=== PATIENT | male | born 1990 | race African-American/Black ===

== ENCOUNTER 2017-12-20 10:57 | Emergency (ER) | payer SELFPAY ==
[~2017-12-20] VITALS: Ht 175.3 cm; Wt 81.8 kg
[2017-12-20] MEDS ORDERED: MORPHINE SULFATE 4 MG/ML SYRINGE IVP ONE (11:30)
[2017-12-20] MEDS ORDERED: LORazepam 2 MG/ML VIAL IVP ONE (11:30)
[2017-12-20] MEDS ORDERED: BUPIVACAINE/EPI/PF 0.5% 30 ML VIAL ID ONE (11:30)
[2017-12-20] MEDS ORDERED: ONDANSETRON HCL 4 MG/2 ML VIAL IVP ONE (11:30)
[2017-12-20 11:40] LABS: HEMATOCRIT 45.3 % (41-53); HEMOGLOBIN 16.4 g/dL (13.5-17.5); MEAN CORPUSCULAR HEMOGLOBIN 33.2 pg (26.0-34.0); MEAN CORPUSCULAR HGB CONC 36.2 G/dL (31.0-37.0); MEAN CORPUSCULAR VOLUME 92 fL (80-100); PLATELET COUNT (AUTO) 229 K/uL (150-450); RED BLOOD CELL COUNT(AUTO) 4.93 MIL/uL (4.50-5.90); RED CELL DISTRIBUTION WIDTH 12.4 % (11.5-14.5)
[2017-12-20 11:50] LABS: ANION GAP 9 mmol/L (8-16); CALCIUM, TOTAL 9.1 mg/dL (8.8-10.5); CARBON DIOXIDE 24 mmol/L (22-29); CHLORIDE 99 mmol/L (98-107); CREATININE 1.21 mg/dL (0.60-1.30); GLOMERULAR FILTR. RATE CALC > 60 mL/min (>60); GLUCOSE,RANDOM 119 mg/dL (70-110); POTASSIUM 4.3 mmol/L (3.5-5.1); SODIUM SERUM 132 mmol/L (136-145); UREA NITROGEN, BLOOD 9 mg/dL (7-18)
[2017-12-20 11:56] LABS: ALANINE AMINOTRANSFERASE 19 U/L (12-78); ALBUMIN 3.2 g/dL (3.4-5.0); ALKALINE PHOSPHATASE 74 U/L (46-116); ASPARTATE AMINOTRANSFERASE 16 U/L (15-37); BILIRUBIN,TOTAL 0.7 mg/dL (0.1-1.0); LIPASE 51 U/L (73-393); TOTAL PROTEIN, SERUM 6.9 g/dL (6.4-8.2)
[2017-12-20 12:02] LABS: BAND NEUTROPHILS % (MANUAL) 11 % (0-5); EOSINOPHILS % (MANUAL) 2 % (1-6); LYMPHOCYTES % (MANUAL) 2 % (22-44); REACTIVE LYMPHOCYTES 1 % (0-0); SEGMENTED NEUTROPHILS % 84 % (40-70)
[2017-12-20] MEDS ORDERED: CLINDAMYCIN 600 MG/D5% WATER 50 ML IV ONE (12:15)
[2017-12-20 13:28] VITALS: BP 120/52
== END 2017-12-20 13:40 | disposition home or self-care (01) ==
LOC: EMS 10:58
DX: L02.212 Cutaneous abscess of back [any part, except buttock and flank] (principal); F17.210 Nicotine dependence, cigarettes, uncomplicated
CPT/HCPCS: 10061; 36415; 71045; 80053; 83690; 84484; 85025; 93005; 96365; 96374; 96375; 99285; G0480; J2060; J2270; J2405; J3490 ×2

== ENCOUNTER 2019-07-06 02:45 | Emergency (ER) | payer SELFPAY ==
[~2019-07-06] VITALS: Ht 175.3 cm; Wt 81.8 kg
[2019-07-06] MEDS ORDERED: BENZ1TAB10 PO (02:52)
[2019-07-06] MEDS ORDERED: HydrOXYzine PAMOATE 50 MG CAPSULE PO ONE (03:45)
[2019-07-06 03:53] LABS: AMPHET/METH SCREEN,URINE POSITIVE (NEGATIVE); BARBITURATE SCREEN, URINE NEGATIVE (NEGATIVE); BENZODIAZEPINES SCREEN,URINE NEGATIVE (NEGATIVE); CANNABINOID SCREEN,URINE NEGATIVE (NEGATIVE); COCAINE SCREEN,URINE NEGATIVE (NEGATIVE); METHADONE SCREEN, URINE NEGATIVE (NEGATIVE); OPIATE SCREEN,URINE NEGATIVE (NEGATIVE); PHENCYCLIDINE SCREEN,URINE NEGATIVE (NEGATIVE)
[2019-07-06 04:04] VITALS: BP 142/86
== END 2019-07-06 04:18 | disposition home or self-care (01) ==
LOC: EMS 02:45
DX: F41.9 Anxiety disorder, unspecified (principal); F15.10 Other stimulant abuse, uncomplicated; F17.210 Nicotine dependence, cigarettes, uncomplicated; Z79.899 Other long term (current) drug therapy

== ENCOUNTER 2019-08-30 00:37 | Emergency (ER) | payer SELFPAY ==
[~2019-08-30] VITALS: Ht 175.3 cm; Wt 81.8 kg
[~2019-08-30 00:37] MED LIST: BENZ1TAB10 PO
[2019-08-30 00:48] VITALS: BP 154/91
[2019-08-30] MEDS ORDERED: OLAN10TA3 PO (00:54)
[2019-08-30] MEDS ORDERED: MIRT30 PO (00:54)
[2019-08-30] MEDS ORDERED: OLAN2.5T3 PO (00:54)
[2019-08-30 01:31] LABS: BASOPHILS % (AUTO) 0.2 % (0.0-2.0); EOSINOPHILS % (AUTO) 6.1 % (1.0-6.0); HEMATOCRIT 50.6 % (41-53); HEMOGLOBIN 17.1 g/dL (13.5-17.5); LYMPHOCYTES % (AUTO) 14.3 % (22.0-44.0); MEAN CORPUSCULAR HEMOGLOBIN 31.7 pg (26.0-34.0); MEAN CORPUSCULAR HGB CONC 33.8 G/dL (31.0-37.0); MEAN CORPUSCULAR VOLUME 94 fL (80-100); MONOCYTES # (AUTO) 0.7 K/uL (0.1-1.0); MONOCYTES % (AUTO) 8.9 % (2.0-9.0); NEUTROPHILS # (AUTO) 5.1 K/uL (1.8-7.7); NEUTROPHILS % (AUTO) 70.5 % (40.0-70.0); RED BLOOD CELL COUNT(AUTO) 5.39 MIL/uL (4.50-5.90); RED CELL DISTRIBUTION WIDTH 12.5 % (11.5-14.5)
[2019-08-30 01:40] LABS: ANION GAP 6 mmol/L (8-16); CALCIUM, TOTAL 9.7 mg/dL (8.8-10.5); CARBON DIOXIDE 29 mmol/L (22-29); CHLORIDE 100 mmol/L (98-107); CREATININE 1.22 mg/dL (0.60-1.30); GLOMERULAR FILTR. RATE CALC > 60 mL/min (>60); GLUCOSE,RANDOM 96 mg/dL (70-110); POTASSIUM 3.9 mmol/L (3.5-5.1); SODIUM SERUM 135 mmol/L (136-145); UREA NITROGEN, BLOOD 13 mg/dL (7-18)
[2019-08-30 01:47] LABS: ALANINE AMINOTRANSFERASE 31 U/L (12-78); ALBUMIN 4.5 g/dL (3.4-5.0); ALKALINE PHOSPHATASE 79 U/L (46-116); ASPARTATE AMINOTRANSFERASE 25 U/L (15-37); BILIRUBIN,TOTAL 0.9 mg/dL (0.1-1.0); TOTAL PROTEIN, SERUM 8.2 g/dL (6.4-8.2)
[2019-08-30 01:53] LABS: PLATELET COUNT (AUTO) 208 K/uL (150-450)
== END 2019-08-30 02:36 | disposition left against medical advice (07) ==
LOC: EMS 00:37
DX: F25.9 Schizoaffective disorder, unspecified (principal); F41.9 Anxiety disorder, unspecified; F31.9 Bipolar disorder, unspecified; F17.210 Nicotine dependence, cigarettes, uncomplicated
CPT/HCPCS: 36415; 80053; 85025; 99284; 99406; G0480

== ENCOUNTER 2019-08-30 03:01 | Emergency (ER) | payer SELFPAY ==
[~2019-08-30] VITALS: Ht 175.3 cm; Wt 81.8 kg
[~2019-08-30 03:01] MED LIST changes: +MIRT30 PO; +OLAN10TA3 PO; +OLAN2.5T3 PO
[2019-08-30] MEDS ORDERED: CEPHALEXIN MONOHYDRATE 500 MG CAPSULE PO ONE (05:30)
[2019-08-30] MEDS ORDERED: ACETAMINOPHEN 500 MG TABLET PO ONE (05:30)
[2019-08-30 05:39] VITALS: BP 135/75
== END 2019-08-30 06:00 | disposition home or self-care (01) ==
LOC: EMS 03:01
DX: M54.5 Low back pain (principal); J02.9 Acute pharyngitis, unspecified; F25.9 Schizoaffective disorder, unspecified; F41.9 Anxiety disorder, unspecified; F31.9 Bipolar disorder, unspecified; F17.210 Nicotine dependence, cigarettes, uncomplicated; Z59.0 Homelessness
CPT/HCPCS: 99406